=== PATIENT | female | born 1965 | race Caucasian/White ===

== ENCOUNTER → 2023-04-24 10:16 | Outpatient (REF) | payer OTHER, SELFPAY | LOC: HWRAD 10:16 | PROVIDERS: ATTENDING PHYSICIAN Family Medicine | DX: M81.0 Age-related osteoporosis without current pathological fracture (principal); Z12.31 Encounter for screening mammogram for malignant neoplasm of breast | CPT/HCPCS: 77063; 77067; 77080 ==

== ENCOUNTER → 2023-10-13 10:06 | Outpatient (REF) | payer OTHER, SELFPAY | LOC: WDC 10:06 | PROVIDERS: ATTENDING PHYSICIAN Nurse Practitioner Adult Health; FAMILY PHYSICIAN Family Medicine | DX: N64.4 Mastodynia (principal) | CPT/HCPCS: 76642; 77061; 77065 ==

== ENCOUNTER 2024-02-16 19:11 | Emergency (ER) | payer OTHER, SELFPAY ==
[2024-02-16 19:16] VITALS: BP 157/73
[2024-02-16 20:46] VITALS: BP 136/74
[2024-02-16 20:47] VITALS: BMI 24.3
[2024-02-16 21:01] VITALS: BP 130/74
[2024-02-16 21:08] LABS: % Basophils 0.5 % (0-2); % Eosinophils 0.5 % (0-6); % Immature Granulocytes 0.4 % (0-0.5); % Lymphocytes 36.4 % (20.5-51.1); % Monocytes 9.7 % (1.7-9.3); % Neutrophils 52.5 % (42.2-75.2); Absolute Lymphocytes 2.7 10^3/uL (1.2-3.4); Absolute Monocytes 0.7 10^3/uL (0.1-0.6); Absolute Neutrophils 3.8 10^3/uL (1.4-6.5); Hematocrit 43.2 % (37.0-47.0); Hemoglobin 14.3 g/dL (12.0-16.0); Mean Corp Hgb Conc. 33.1 g/dL (33.0-37.0); Mean Corpuscular Hgb 31.2 pg (27.0-31.0); Mean Corpuscular Volume 94.3 fL (81.0-99.0); Nucleated Red Blood Cells % 0 %; Platelet Count 228 10^3/uL (130-400); Red Blood Cell Count 4.58 10^6/uL (4.20-5.40); Red Cell Dist. Width 13.2 % (11.5-14.5); White Blood Cell Count 7.3 10^3/uL (4.8-10.8)
[2024-02-16 21:10] LABS: Urine Albumin Negative (Neg - Trace); Urine Bilirubin Negative (Negative); Urine Character Clear (Clear); Urine Color Straw; Urine Glucose Negative (Negative); Urine Ketone Negative (Negative); Urine Leukocyte Negative (Negative); Urine Nitrite Negative (Negative); Urine Occult Blood Negative (Negative); Urine Urobilinogen Negative (Neg - 1+)
[2024-02-16] MEDS: OMNIPAQUE 50 ML PO (21:23)
[2024-02-16 21:27] LABS: ALT (SGPT) 26 U/L (0-35); AST (SGOT) 30 U/L (14-36); Albumin 4.7 g/dl (3.5-5.0); Alkaline Phosphatase 60 U/L (38-126); Blood Urea Nitrogen 20 mg/dl (7-17); Calcium 9.6 mg/dl (8.4-10.2); Carbon Dioxide 26 mmol/L (22-30); Chloride 102 mmol/L (98-107); Estimated Creatinine Clearance 71 ml/min; Glucose 89 mg/dl (70-99); Potassium 4.3 mmol/L (3.5-5.1); Sodium 139 mmol/L (135-145); Total Bilirubin 0.4 mg/dl (0.2-1.3); Total Protein 7.2 g/dl (6.3-8.2); eGFR > 60.00
--- NOTE | 2024-02-16 21:52 | ED.GENMED ---
History of Present Illness
General
Chief Complaint: Abdominal Pain
Source: patient
Exam Limitations: none
Time Seen by Provider: 02/16/24 20:56
History of Present Illness
History of Present Illness:
This is a 58 year old female that comes in with c/o left sided abd pain. States that the pain goes into the left groin and back. States that the pain started last night in the middle of the night. States that today she went to see the PCP and she
was sent into the ER for further evaluation. States that she is nauseated and has a headache. Denies any fever, chills, chest pain, SOB, vomiting, diarrhea, dizziness, urinary burning.
Past History
Past History
ED Past Medical History: Other (Chronic lower back pain. Takes Gabapentin, Neuropathy,) and Other (Takes Venlafaxine for hot flashes); Negative Asthma, HTN, Hypercholesterolemia or NIDDM
ED Past Surgical History: Appendectomy, Orthopedic (L3,4,5 laminectomy 3 years ago in [place] Right wrist surgery with pins and plates, hip surgery) and Other (Hernia repair R breast lumpectomy last week: benign)
Social History
Tobacco: Former smoker
Alcohol: Occasional
Personal:
Living: with family
Review of Systems
Review of Systems
All Other Systems: ROS reviewed and negative except as documented in HPI and ROS
Constitutional: Reports no symptoms; Denies fever or chills
EENT: Reports no symptoms
Respiratory: Reports no symptoms; Denies cough or trouble breathing
Cardiac: Reports no symptoms; Denies chest pain
ABD/GI: Reports abdominal pain and nausea; Denies vomiting or diarrhea
: Reports no symptoms; Denies dysuria, frequency or urgency
Musculoskeletal: Reports no symptoms
Skin: Reports no symptoms
Neurological: Reports headache; Denies dizzy
Psychiatric: Reports no symptoms
Phy Exam
General Physical Exam
General Presentation: mild distress
General age: appears stated age
General Skin: warm and dry
General Habitus: normal
General Mental: alert
General Hydration: appears well hydrated
ENT Exam
ENT Exam: TM's normal, pharynx normal and neck supple
Eye Exam
Eye Exam: EOMI
Cardiovascular Exam
Cardiovascular Exam: regular rate/rhythm, no edema, no murmur and normal peripheral pulses
Pulmonary Exam
Pulmonary Exam: lungs clear, no respiratory distress, no rales, chest non tender, no crackles, no rhonchi, no wheezing and no cough
Gastrointestinal Exam
Gastrointestinal Exam: normal bowel sounds, soft, no organomegaly, no pulsatile mass, non distended and tender (LLQ tenderness with palpation)
Musculoskeletal Exam
Musculoskeletal Exam: full ROM and no edema
Skin Exam
Skin Exam: normal color, warm/dry, no rash and no petechia
Course
Orders/Labs/Results
Orders:
Orders
02/16/24 21:00
Complete Blood Count/With Diff Urgent
Comprehensive Metabolic Panel Urgent
Urinalysis Reflex To Culture Urgent
Date Specimen was Collected: 02/16/24
Time Specimen was Collected: 20:59
02/16/24 21:20
Iohexol [Omnipaque] 50 ml .ROUTE .K-MED ONE
02/16/24 21:22
Iohexol [Omnipaque] See Protocol PO NOW STA
02/16/24 21:51
Iohexol [Omnipaque] See Protocol PO NOW STA
02/16/24 21:52
CT Abd/pel W Iv And Oral Contr Urgent
Comment:
Reason For Exam: Left lower abd pain into back
0.9% Sodium Chloride 1000 ml [Nss] 1,000 ml IV BOLUS
Ketorolac [Toradol] 30 mg IV NOW STA
02/16/24 21:53
Ondansetron Injectable [Zofran] 4 mg IV NOW STA
02/16/24 22:59
HYDROmorphone [Dilaudid] 0.5 mg IV NOW STA
02/17/24 00:12
US Pelvis Only (non-obstetric) Urgent
Comment:
Reason For Exam: LLQ abd pain r/o torsion
02/17/24 00:13
0.9% Sodium Chloride 500 ml [Nss] 500 ml IV BOLUS
Abnormal Lab Results
02/16/24
21:00
MCH 31.2 H pg
(27.0-31.0)
MPV 11.0 H fL
(7.4-10.4)
Absolute Monos (auto) 0.7 H 10^3/uL
(0.1-0.6)
Monocytes % 9.7 H %
(1.7-9.3)
BUN 20 H mg/dl
(7-17)
02/16/24 21:00
02/16/24 21:00
Dehydration, Urine negative for infection
Vital Signs
Initial and Last Documented VS:
Initial Vital Signs
Temp Pulse Resp BP Pulse Ox
97.8 F 61 18 157/73 100
02/16/24 19:16 02/16/24 19:16 02/16/24 19:16 02/16/24 19:16 02/16/24 19:16
Last Documented Vital Signs
Temp Pulse Resp BP Pulse Ox
97.8 F 61 18 133/74 86
02/16/24 19:16 02/16/24 19:16 02/16/24 19:16 02/17/24 01:53 02/17/24 01:54
MDM/Problems Addressed
Differential Diagnosis Includes:
Diverticulitis,
MDM/Problems Addressed:
This is a 58 year old female that come sin with c/o left lower abd pain and low back pain. patient went to the PCP today and was sent in for further evaluation.
Will get Labs, CT scan and given IV fluid and pain medication.
Back into see patient. Explained that her Blood work and CT are all normal. Urine is negative for infection. Patient states that she still has pain. Will get Ultrasound to r/o ovarian Torsion.
Back into see patient. Explained that her US is also normal. Explained that this may be a pulled muscle or just due to degenerative changes in the back. Will have patient us Tylenol and Ibuprofen for pain. Follow up with the family doctor. Return
with any concerns.
Chronic conditions affecting care:
NA
Acute Exacerbation and/or Progression of Chronic Illness:
NA
*Radiology
Radiology exam reviewed: radiology read reviewed (CT- night hawk-No acute findings. No bowel obstruction or inflammation. NO evidence of an inguinal hernia. No free fluid or free air. Unremarkable gallbladder, pancreas and kidneys. Atherosclerosis.
No AAA. Prior L4 laminectomy), all reviewed NAD by ED Provider (US night hawk- NO acute findings. Uterus appears normal. Endometrial complex measures 2-3 mm in thickness which is within normal limits. No appreciable abnormal endometrial doppler
vascularity. Bilateral ovaries appear normal with Doppler blood flow demonstrated bilaterally. No adnexal mass. ) and other (US cont- No appreciable free pelvic fluid. )
*Pulse Oximetry
Patient hypoxic: no
*EKG
Interpreted by ED Provider?: NA
Rate: EKG- N/A
*Skiff Operator Interpretation
Rate: Skiff Operator- N/A
*Critical Care Note
Total Time (30-74mins, 75-104mins- exclusive of procedures): Not Applicable
ED Attending Note
-
Portions of this chart may have been created with voice recognition software.� Occasional wrong word or��sound alike� substitutions may have occurred due to the inherent limitations of voice recognition software.
Discharge Plan
Departure
Patient Disposition: Home (Routine Discharge)
Date of Disposition: 02/17/24
Time of Disposition: 02:15
Patient with high blood pressure during this ER visit?: Yes
Condition: Good
Covid-19: Not Applicable
Discharge Problem:
Left lower quadrant abdominal pain, Back pain
Instructions: Back Pain, Abdominal Pain, BLOOD PRESSURE
Prescriptions:
No Action
calcium carbonate [Calcium 600] 600 MG tablet
600 mg PO DAILY
docosahexaenoic acid-epa 1 CAP capsule
1 cap PO DAILY
magnesium amino acid chelate 100 MG tablet
1 tab PO DAILY
multivitamin with folic acid [Tab-A-Ren] 1 TABLET tablet
1 tab PO DAILY
Vitamin D
1 tab PO DAILY
venlafaxine [Effexor] 75 MG tablet
75 mg PO DAILY
gabapentin 300 MG capsule
300 mg PO DAILY
tramadol [Ultram] 50 MG tablet
50 mg PO TID PRN (Reason: pain) Qty: 12 0RF
Referrals:
Flor Schulz DO [Family Provider] - Call in 1-3 days for appt
Activity Restrictions/Additional Instructions:
As discussed your blood work is normal and your urine is negative for infection. Your CT was negative for any acute process and your Ultrasound is normal. You may have pulled a groin muscle or this may be coming from the back as the nerves wrap
around to the abdomen. Please use Tylenol 1000mg every 6 hours for pain and alternate with Ibuprofen 600mg every 6 hours with food for pain. You may use heat or ice to the back and lower abdomen to help with any discomfort. Follow up with the family
doctor for recheck. IF YOU HAVE ANY OTHER CONCERNS PLEASE RETURN TO THE EMERGENCY ROOM .
Interventions
Interventions:
*Risk Screen - Suicide Last Done: 02/16/24 19:16
*General Assessment Last Done: 02/16/24 19:16
*Neglect/Abuse Screening Last Done: 02/16/24 19:16
ED- Fall Risk Assessment Last Done: 02/16/24 20:49
*ED COVID-19 Vaccine History Last Done: 02/16/24 20:48
BH-Idshpu-Eaildclgdc Assessment Last Done: 02/16/24 20:49
Discharge Date and Time
Print Language: PANAMANIAN
[2024-02-16] MEDS: NSS 1000 IV (21:58)
[2024-02-16] MEDS: TORADOL 30 MG IV (21:59)
[2024-02-16] MEDS: ZOFRAN 4 MG IV (22:00)
[2024-02-16] MEDS: DILAUDID 0.5 MG IV (23:01)
[2024-02-17] MEDS: NSS 500 IV (00:24)
[2024-02-17 01:53] VITALS: BP 133/74
[2024-02-17 02:00] VITALS: BP 118/78
[2024-02-17] MEDS: DILAUDID 1 MG IV (02:32)
== END 2024-02-17 02:49 | disposition home or self-care (01) ==
LOC: EMR 19:11
PROVIDERS: Clinical Nurse Specialist Family Health; EMERGENCY PHYSICIAN Emergency Medicine; FAMILY PHYSICIAN Family Medicine
DX: R10.32 Left lower quadrant pain (principal); M54.50 Low back pain, unspecified; I10 Essential (primary) hypertension; Z87.891 Personal history of nicotine dependence
CPT/HCPCS: 99285; 96374; 96375 ×2; 96361; 96376; 74177; 76856; 80053; 81003; 85025; Q9967

== ENCOUNTER → 2024-03-03 11:47 | Outpatient (REF) | payer OTHER, SELFPAY | LOC: HWRAD 11:47 | PROVIDERS: ATTENDING PHYSICIAN Internal Medicine Rheumatology; FAMILY PHYSICIAN Family Medicine | DX: M54.50 Low back pain, unspecified (principal); M25.552 Pain in left hip | CPT/HCPCS: 72114; 73502 ==

== ENCOUNTER 2024-04-14 08:49 | Outpatient (RCR) | payer OTHER, SELFPAY | END 2024-04-14 23:59 | disposition home or self-care (01) | LOC: RPT 08:49 | PROVIDERS: ATTENDING PHYSICIAN Internal Medicine Rheumatology; FAMILY PHYSICIAN Family Medicine | DX: M54.51 Vertebrogenic low back pain (principal); Z73.6 Limitation of activities due to disability; M25.552 Pain in left hip; R20.2 Paresthesia of skin; G89.29 Other chronic pain | CPT/HCPCS: 97010; 97110; 97112; 97140; 97162 ==

== ENCOUNTER → 2024-08-23 10:34 | Outpatient (REF) | payer OTHER, SELFPAY | LOC: HWRAD 10:34 | PROVIDERS: ATTENDING PHYSICIAN Internal Medicine Rheumatology; FAMILY PHYSICIAN Family Medicine | DX: M80.00XA Age-related osteoporosis with current pathological fracture, unspecified site, initial encounter for fracture (principal); Z13.820 Encounter for screening for osteoporosis; Z87.310 Personal history of (healed) osteoporosis fracture | CPT/HCPCS: 77080 ==

== ENCOUNTER → 2024-12-06 15:20 | Outpatient (REF) | payer OTHER, SELFPAY | LOC: HWRAD 15:20 | PROVIDERS: ATTENDING PHYSICIAN Nurse Practitioner Family; FAMILY PHYSICIAN Family Medicine | DX: M54.2 Cervicalgia (principal) | CPT/HCPCS: 72052 ==

== ENCOUNTER → 2024-12-30 13:54 | Outpatient (REF) | payer OTHER, SELFPAY | LOC: HWWDC 13:54 | PROVIDERS: ATTENDING PHYSICIAN Nurse Practitioner Adult Health; FAMILY PHYSICIAN Family Medicine | DX: Z12.31 Encounter for screening mammogram for malignant neoplasm of breast (principal) | CPT/HCPCS: 77063; 77067 ==

== ENCOUNTER → 2025-02-07 07:11 | Outpatient (REF) | payer OTHER, SELFPAY ==
[2025-02-07 11:28] LABS: Blood Urea Nitrogen 23 mg/dl (7-17); Calcium 8.9 mg/dl (8.4-10.2); Carbon Dioxide 26 mmol/L (22-30); Chloride 106 mmol/L (98-107); Glucose 90 mg/dl (70-99); Potassium 4.4 mmol/L (3.5-5.1); Sodium 135 mmol/L (135-145); eGFR > 60.00
[2025-02-07 12:14] LABS: Folate 8.4 ng/ml (2.76-20); Vitamin B12 638 pg/ml (239-931)
== END ==
LOC: HWRAD 07:11
PROVIDERS: ATTENDING PHYSICIAN Family Medicine
DX: R22.1 Localized swelling, mass and lump, neck (principal); N28.9 Disorder of kidney and ureter, unspecified; D75.89 Other specified diseases of blood and blood-forming organs
CPT/HCPCS: 36415; 76536; 80048; 82607; 82746

== ENCOUNTER → 2025-02-09 12:33 | Outpatient (REF) | payer OTHER, SELFPAY | LOC: HWRAD 12:33 | PROVIDERS: ATTENDING PHYSICIAN Family Medicine | DX: Z87.891 Personal history of nicotine dependence (principal) | CPT/HCPCS: 71271 ==